=== PATIENT | male | born 1940 | race Caucasian/White ===

== ENCOUNTER 2016-08-05 14:19 | Emergency (ER) | payer MEDICARE | END 2016-08-05 15:25 | disposition home or self-care (01) | LOC: NAV ERS 14:19 | DX: B02.9 Zoster without complications (principal); E78.5 Hyperlipidemia, unspecified; G70.00 Myasthenia gravis without (acute) exacerbation; E78.00 Pure hypercholesterolemia, unspecified; I10 Essential (primary) hypertension; Z87.891 Personal history of nicotine dependence | CPT/HCPCS: 99282 ==

== ENCOUNTER 2016-08-16 10:05 | Emergency (ER) | payer MEDICARE ==
[2016-08-16] MEDS ORDERED: Lisinopril 10 MG TAB ONE (10:56)
[2016-08-16] MEDS ORDERED: Carvedilol 3.125 MG TAB ONE (10:56)
[2016-08-16 11:03] LABS: #Basophils 0.1 thou/uL (0.0-0.2); #Eosinphils 0.3 thou/uL (0.0-0.7); #Monocytes 0.6 thou/uL (0.11-0.59); #Neutrophils 2.3 thou/uL (1.40-6.50); %Basophils 1.4 % (0.0-1.0); %Lymphocytes 38.3 % (21.0-51.0); Mean Platelet Volume 7.1 fL (7.4-10.4); Red Blood Cell (RBC) Count 4.81 mill/uL (4.70-6.10); White Blood Cell (WBC) Count 5.3 thou/uL (4.8-10.8)
[2016-08-16 11:16] LABS: ALT (SGPT) 25 U/L (0-55); AST (SGOT) 17 U/L (5-34); Alkaline Phosphatase 119 U/L (40-150); Anion Gap 14 mmol/L (10-20); BUN (Urea Nitrogen) 27 mg/dL (8.4-25.7); Bilirubin, Total 0.7 mg/dL (0.2-1.2); CK (CPK) 118 U/L (30-200); Calc. Creatinine Clearance 0 mL/min (70-130); Calcium 9.6 mg/dL (7.8-10.44); Carbon Dioxide 23 mmol/L (23-31); Chloride 104 mmol/L (98-107); Estimated GFR-MDRD 59; Globulin 3.6 g/dL (2.4-3.5); Protein, Total 8.1 g/dL (5.8-8.1)
--- NOTE | 2016-08-16 12:19 | RAD ---
PA AND LATERAL VIEWS OF CHEST: Date: 08/16/16 HISTORY: Dyspnea, allergic reaction to iodinated IV contrast. FINDINGS: Comparison made with exam of 09/01/14. The heart size is normal. The aorta is tortuous. The lungs are well expanded without focal areas of consolidation, pneumothorax, carol ann pulmonary edema, or pleural effusions. No acute osseous abnormali ties are seen. IMPRESSION: No radiographic evidence of acute cardiopulmonary process. POS: [facility]
[2016-08-16] MEDS ORDERED: Aspirin 325 MG TAB ONE (12:47)
[2016-08-16] MEDS ORDERED: HYDROcodone/Acetaminophen 10/325 mg Tablet ONE (13:05)
== END 2016-08-16 13:08 | disposition short-term general hospital (02) ==
LOC: NAV ERS 10:05
DX: R06.00 Dyspnea, unspecified (principal); B02.9 Zoster without complications; R79.89 Other specified abnormal findings of blood chemistry; E78.5 Hyperlipidemia, unspecified; I10 Essential (primary) hypertension; Z79.899 Other long term (current) drug therapy; Z87.891 Personal history of nicotine dependence
CPT/HCPCS: 71020; 80053; 82550; 82553; 83880; 84484; 85025; 93005; 94760